=== PATIENT | female | born 1995 | race African-American/Black ===

== ENCOUNTER → 2018-09-12 | Outpatient (CLI) | payer OTHER ==
[~2018-09-12] MED LIST: AUGMENTIN 875 M1 TAB PO; BCP; BENTYL10 MG PO; CLARITIN10 MG PO; EES400 MG PO; FLONASE ALLERG9.9 ML NS; HYDROCODONE BIT1 T11 PO; MOTRIN100 MG/5 M PO; MOTRIN400 MG PO; NKHM; ZITHROMAX Z PA250 MG PO; ZOFRAN ODT4 MG SL
[2018-09-12 14:44] LABS: BASO % 0.2 % (0.0-1.0); EOS # 0.2 10*3/uL (0.0-0.4); HEMATOCRIT 42.2 % (37.0-47.0); HEMOGLOBIN 13.8 g/dl (12.0-16.0); LYMPH # 2.2 10*3/uL (1.3-4.4); LYMPH % 35.7 % (27.0-41.0); MEAN CELL VOLUME 89.4 fl (81.0-99.0); MEAN CORPUSCULAR HGB 29.2 pg (27.0-31.0); MEAN CORPUSCULAR HGB CONC 32.7 g/dl (33.0-37.0); MEAN PLATELET VOLUME 8.8 fl (9.6-12.3); MONO # 0.5 10*3/uL (0.1-1.0); MONO % 7.8 % (3.0-9.0); NEUT # 3.2 10*3/uL (2.3-7.9); NEUT % 53.1 % (47.0-73.0); PLATELET COUNT AUTOMATED 282 10*3/uL (130-400); RED BLOOD COUNT 4.72 10*6/uL (4.10-5.10); RED CELL DISTRI WIDTH 13.5 % (0-14.5)
[2018-09-12 15:01] LABS: BETA-HCG, QUANT < 1.0 mIU/mL (1-3); CHOLESTEROL 133 mg/dL (<200); GAMMA GLUTAMYL TRANSPEPTIDASE 20 U/L (5-55); HDL CHOLESTEROL 57 mg/dl (40-60); LDL CHOLESTEROL 62 mg/dL (9-159); TRIGLYCERIDES 69 mg/dl (<150); VLDL CHOLESTEROL 14 mg/dL (6-40)
== END | disposition home or self-care (01) ==
LOC: LAB 14:23
PROVIDERS: Physician Assistant Medical
DX: L60.0 Ingrowing nail (principal); Z79.899 Other long term (current) drug therapy

== ENCOUNTER → 2018-11-18 | Outpatient (CLI) | payer OTHER ==
[2018-11-18 10:43] LABS: BETA-HCG, QUANT < 1.0 mIU/mL (1-3); CHOLESTEROL 151 mg/dL (<200); GAMMA GLUTAMYL TRANSPEPTIDASE 24 U/L (5-55); HDL CHOLESTEROL 48 mg/dl (40-60); LDL CHOLESTEROL 79 mg/dL (9-159); TRIGLYCERIDES 121 mg/dl (<150); VLDL CHOLESTEROL 24 mg/dL (6-40)
== END | disposition home or self-care (01) ==
LOC: LAB 09:53
PROVIDERS: Physician Assistant Medical
DX: L60.0 Ingrowing nail (principal); Z79.899 Other long term (current) drug therapy

== ENCOUNTER → 2018-12-17 | Outpatient (CLI) | payer OTHER ==
[~2018-12-17] MED LIST changes: +Tobrex Ophth S2.5 ML OPH
== END | disposition home or self-care (01) ==
LOC: LAB 11:35
DX: L60.0 Ingrowing nail (principal); Z79.899 Other long term (current) drug therapy

== ENCOUNTER → 2019-01-20 | Outpatient (CLI) | payer OTHER | END | disposition home or self-care (01) | LOC: LAB 13:26 | DX: L60.0 Ingrowing nail (principal); Z79.899 Other long term (current) drug therapy ==

== ENCOUNTER → 2019-04-21 | Outpatient (CLI) | payer OTHER | END | disposition home or self-care (01) | LOC: LAB 17:03 | DX: L60.0 Ingrowing nail (principal); Z79.899 Other long term (current) drug therapy ==

== ENCOUNTER → 2019-07-27 | Outpatient (CLI) | payer OTHER | END | disposition home or self-care (01) | LOC: LAB 15:17 | DX: L02.413 Cutaneous abscess of right upper limb (principal) ==

== ENCOUNTER → 2019-09-07 | Outpatient (CLI) | payer OTHER ==
[2019-09-07 11:42] LABS: BASO % 0.3 % (0.0-1.0); EOS # 0.1 10*3/uL (0.0-0.4); HEMATOCRIT 45.1 % (37.0-47.0); HEMOGLOBIN 14.7 g/dl (12.0-16.0); LYMPH % 28.7 % (27.0-41.0); MEAN CELL VOLUME 88.6 fl (81.0-99.0); MEAN CORPUSCULAR HGB 28.9 pg (27.0-31.0); MEAN CORPUSCULAR HGB CONC 32.6 g/dl (33.0-37.0); MEAN PLATELET VOLUME 8.4 fl (9.6-12.3); MONO # 0.7 10*3/uL (0.1-1.0); NEUT # 4.2 10*3/uL (2.3-7.9); NEUT % 59.9 % (47.0-73.0); PLATELET COUNT AUTOMATED 314 10*3/uL (130-400); RED BLOOD COUNT 5.09 10*6/uL (4.10-5.10); RED CELL DISTRI WIDTH 12.9 % (0-14.5)
[2019-09-07 12:01] LABS: ALBUMIN 3.8 gm/dl (3.1-4.5); ALKALINE PHOSPHATASE 92 U/L (45-117); BUN 8 mg/dl (7-24); CHLORIDE 109 mmol/L (98-107); CREATININE 0.88 mg/dL (0.55-1.02); POTASSIUM 3.9 mmol/L (3.5-5.1); SGOT/AST 16 IU/L (3-35); SGPT/ALT 16 U/L (12-78); SODIUM 139 mmol/L (136-145); TOTAL PROTEIN 8.1 gm/dL (6.4-8.2)
== END | disposition home or self-care (01) ==
LOC: LAB 11:27
PROVIDERS: Pediatrics
DX: R05 Cough (principal); R06.02 Shortness of breath; R07.9 Chest pain, unspecified

== ENCOUNTER → 2019-11-02 | Outpatient (CLI) | payer BC | END | disposition home or self-care (01) | LOC: LAB 15:34 | DX: Z32.01 Encounter for pregnancy test, result positive (principal) ==

== ENCOUNTER 2019-12-06 18:39 | Emergency (ER) | payer BC ==
[~2019-12-06] VITALS: Ht 175.2 cm; Wt 76.2 kg
[2019-12-06 18:48] VITALS: BP 132/80
[2019-12-06 20:14] LABS: BASO % 0.3 % (0.0-1.0); EOS # 0.1 10*3/uL (0.0-0.4); EOS % 0.3 % (1.0-4.0); HEMATOCRIT 44.7 % (37.0-47.0); HEMOGLOBIN 15.1 g/dl (12.0-16.0); LYMPH # 3.2 10*3/uL (1.3-4.4); LYMPH % 21.8 % (27.0-41.0); MEAN CELL VOLUME 88.3 fl (81.0-99.0); MEAN CORPUSCULAR HGB 29.8 pg (27.0-31.0); MEAN CORPUSCULAR HGB CONC 33.8 g/dl (33.0-37.0); MEAN PLATELET VOLUME 8.8 fl (9.6-12.3); MONO # 1.1 10*3/uL (0.1-1.0); MONO % 7.4 % (3.0-9.0); NEUT # 10.2 10*3/uL (2.3-7.9); NEUT % 69.7 % (47.0-73.0); PLATELET COUNT AUTOMATED 374 10*3/uL (130-400); RED BLOOD COUNT 5.06 10*6/uL (4.10-5.10); RED CELL DISTRI WIDTH 13.2 % (0-14.5); WHITE BLOOD COUNT 14.7 10*3/uL (4.8-10.8)
[2019-12-06 20:24] LABS: ACT PARTIAL THROMBO TIME 27.8 SECONDS (20.0-32.1); INTERNATIONAL NORM RATIO 0.9 (2.0-3.5)
[2019-12-06 20:29] LABS: ALBUMIN 3.6 gm/dl (3.1-4.5); ALKALINE PHOSPHATASE 60 U/L (45-117); BUN 7 mg/dl (7-24); CHLORIDE 108 mmol/L (98-107); POTASSIUM 3.8 mmol/L (3.5-5.1); SGOT/AST 20 IU/L (3-35); SGPT/ALT 21 U/L (12-78); SODIUM 138 mmol/L (136-145); TOTAL PROTEIN 7.6 gm/dL (6.4-8.2)
[2019-12-06 20:31] LABS: BILIRUBIN NEGATIVE (NEGATIVE); BLOOD NEGATIVE (NEGATIVE); CLARITY SL CLOUDY (CLEAR); COLOR YELLOW (YELLOW); GLUCOSE NEGATIVE (NEGATIVE); KETONE 3+ (NEGATIVE); LEUKO ESTERASE NEGATIVE (NEGATIVE); NITRITE NEGATIVE (NEGATIVE); UROBILINOGEN 0.2 E.U./dl (0.2-1.0)
[2019-12-06 20:35] LABS: BACTERIA 2+; RBC 0-2 rbc/hpf (0-2)
[2019-12-06] MEDS ORDERED: DICLEGIS DR 101 EACH PO (23:22)
== END 2019-12-07 02:59 | disposition home or self-care (01) ==
LOC: ED 18:39
PROVIDERS: Nurse Practitioner Family
DX: O21.8 Other vomiting complicating pregnancy (principal); Z3A.08 8 weeks gestation of pregnancy; Z79.899 Other long term (current) drug therapy

== ENCOUNTER 2020-05-26 12:45 | Emergency (ER) | payer BC, OTHER ==
[~2020-05-26] VITALS: Ht 175.2 cm; Wt 99.3 kg
[~2020-05-26 12:45] MED LIST changes: +DICLEGIS DR 101 EACH PO
[2020-05-26 12:49] VITALS: BP 123/68
[2020-05-26] MEDS ORDERED: PRENATA CHEWAB1 EACH PO (13:11)
[2020-05-26 13:19] LABS: BASO # 0.1 10*3/uL (0.0-0.1); BASO % 0.4 % (0.0-1.0); EOS # 0.3 10*3/uL (0.0-0.4); EOS % 2.3 % (1.0-4.0); HEMATOCRIT 40.7 % (37.0-47.0); LYMPH # 2.1 10*3/uL (1.3-4.4); LYMPH % 17.3 % (27.0-41.0); MEAN CELL VOLUME 91.3 fl (81.0-99.0); MEAN CORPUSCULAR HGB 30.7 pg (27.0-31.0); MEAN CORPUSCULAR HGB CONC 33.7 g/dl (33.0-37.0); MEAN PLATELET VOLUME 9.1 fl (9.6-12.3); MONO % 8.7 % (3.0-9.0); NEUT # 8.2 10*3/uL (2.3-7.9); NEUT % 68.9 % (47.0-73.0); PLATELET COUNT AUTOMATED 246 10*3/uL (130-400); RED BLOOD COUNT 4.46 10*6/uL (4.10-5.10); RED CELL DISTRI WIDTH 12.9 % (0-14.5); WHITE BLOOD COUNT 11.9 10*3/uL (4.8-10.8)
[2020-05-26 13:33] LABS: BILIRUBIN NEGATIVE (NEGATIVE); BLOOD NEGATIVE (NEGATIVE); CLARITY CLOUDY (CLEAR); COLOR YELLOW (YELLOW); GLUCOSE NEGATIVE (NEGATIVE); KETONE NEGATIVE (NEGATIVE); LEUKO ESTERASE TRACE (NEGATIVE); NITRITE NEGATIVE (NEGATIVE); SPECIFIC GRAVITY 1.025 (1.005-1.030); UROBILINOGEN 0.2 E.U./dl (0.2-1.0)
[2020-05-26 13:39] LABS: ALBUMIN 2.6 gm/dl (3.1-4.5); ALKALINE PHOSPHATASE 119 U/L (45-117); BUN 4 mg/dl (7-24); CHLORIDE 107 mmol/L (98-107); CREATININE 0.66 mg/dL (0.55-1.02); POTASSIUM 3.7 mmol/L (3.5-5.1); SGOT/AST 18 IU/L (3-35); SGPT/ALT 18 U/L (12-78); SODIUM 136 mmol/L (136-145); TOTAL PROTEIN 6.3 gm/dL (6.4-8.2)
[2020-05-26 13:40] LABS: BACTERIA 4+; EPITHELIAL CELLS 31-40; MUCOUS 2+
== END 2020-05-26 16:09 | disposition home or self-care (01) ==
LOC: ED 12:45
PROVIDERS: Nurse Practitioner Family
DX: O26.893 Other specified pregnancy related conditions, third trimester (principal); R61 Generalized hyperhidrosis; R25.1 Tremor, unspecified; Z79.899 Other long term (current) drug therapy

== ENCOUNTER 2020-06-02 21:25 | Emergency (ER) | payer BC, OTHER ==
[~2020-06-02] VITALS: Ht 175.2 cm; Wt 97.5 kg
[~2020-06-02 21:25] MED LIST changes: +PRENATA CHEWAB1 EACH PO
[2020-06-02 21:34] VITALS: BP 118/74
== END 2020-06-02 23:37 | disposition home or self-care (01) ==
LOC: ED 21:25
DX: O26.891 Other specified pregnancy related conditions, first trimester (principal); R60.0 Localized edema; Z3A.08 8 weeks gestation of pregnancy; Z79.899 Other long term (current) drug therapy

== ENCOUNTER 2025-07-09 18:54 | Inpatient (IN) | payer OTHER ==
[~2025-07-09] VITALS: Ht 175.3 cm; Wt 90.5 kg
[2025-07-09 19:27] VITALS: BP 93/61
[2025-07-09] MEDS ORDERED: ACETAMINOPHEN 325 MG TAB PO ONE (19:50)
[2025-07-09] MEDS ORDERED: SODIUM CHLORIDE 0.9% 1,000 ML IV ONE (19:50)
[2025-07-09] MEDS ORDERED: Ondansetron Hydrochloride 4 MG/2 ML VIAL IV ONE (19:50)
[2025-07-09 20:33] LABS: MEAN CELL VOLUME 74.7 fl (81.0-99.0); MEAN CORPUSCULAR HGB 24.2 pg (27.0-31.0); MEAN PLATELET VOLUME 9.8 fl (9.6-12.3); NUCLEATED RED BLOOD CELL 0.0 % (0.0-0.0); NUCLEATED RED BLOOD CELL 0.0 10*3/uL (0.0-0.0); PLATELET COUNT AUTOMATED 211 10*3/uL (130-400); RED CELL DISTRI WIDTH 14.1 % (0-14.5)
[2025-07-09 20:34] LABS: MANUAL DIFF REFLEX YES
[2025-07-09 20:39] LABS: BILIRUBIN Negative (Negative); BLOOD Negative (Negative); CLARITY Clear (Clear); COLOR Orange (Yellow); KETONE 3+ (Negative); LEUKO ESTERASE Negative (Negative); NITRITE Negative (Negative); PH 5.5 (4.5-8.0); SPECIFIC GRAVITY 1.020 (1.001-1.030); UROBILINOGEN 1.0 E.U./dl (0.0-1.0)
[2025-07-09 20:46] LABS: EPITHELIAL CELLS 21-30; FINE GRANULAR CAST 0-2; MUCOUS 1+; RBC 0-2 rbc/hpf (0-2); WBC 0-2 wbc/hpf (0-5)
[2025-07-09 20:54] LABS: BUN 5 mg/dl (9-23)
[2025-07-09 20:59] LABS: BASOPHILS 1 % (0-1); PLATELET SUFFICIENCY NORMAL (NORMAL)
[2025-07-09] MEDS ORDERED: PROCHLORPERAZIN10 MG PO (21:30)
[2025-07-09] MEDS ORDERED: OLANZAPINE5 MG PO (21:30)
[2025-07-09 22:59] VITALS: BP 100/57
[2025-07-09 23:02] VITALS: BP 100/57
[2025-07-10 01:57] VITALS: BP 93/49
[2025-07-10] MEDS ORDERED: BISACODYL 10 MG SUPP R PRN (02:10)
[2025-07-10] MEDS ORDERED: BISACODYL 5 MG TAB PO PRN (02:10)
[2025-07-10] MEDS ORDERED: Acetaminophen/Hydrocodone 5 MG/325 MG TABLET PO PRN (02:10)
[2025-07-10] MEDS ORDERED: TEMAZEPAM 15 MG CAP PO PRN (02:10)
[2025-07-10] MEDS ORDERED: ACETAMINOPHEN 325 MG TAB PO PRN (02:10)
[2025-07-10] MEDS ORDERED: ACETAMINOPHEN 650 MG SUPP R PRN (02:10)
[2025-07-10] MEDS ORDERED: SODIUM CHLORIDE 0.9% 1,500 ML IV ONE (02:10)
[2025-07-10] MEDS ORDERED: Ondansetron Hydrochloride 4 MG/2 ML VIAL IV PRN (02:10)
[2025-07-10 03:20] VITALS: BP 100/67
[2025-07-10] MEDS ORDERED: POTASSIUM CHLORIDE 20 MEQ TAB PO ONE ×2 (04:25→08:00)
[2025-07-10 06:13] LABS: MEAN CELL VOLUME 76.3 fl (81.0-99.0); MEAN CORPUSCULAR HGB 24.4 pg (27.0-31.0); MEAN PLATELET VOLUME 10.0 fl (9.6-12.3); NUCLEATED RED BLOOD CELL 0.0 % (0.0-0.0); NUCLEATED RED BLOOD CELL 0.0 10*3/uL (0.0-0.0); PLATELET COUNT AUTOMATED 193 10*3/uL (130-400); RED CELL DISTRI WIDTH 14.2 % (0-14.5)
[2025-07-10 06:14] LABS: MANUAL DIFF REFLEX YES
[2025-07-10 06:20] LABS: BUN 6 mg/dl (9-23); FREE T4 1.16 ng/dl (0.89-1.76); LDL CHOLESTEROL 46 mg/dL (9-159); SGPT/ALT 16 U/L (5-49)
[2025-07-10 07:14] LABS: VITAMIN D, 25-HYDROXY 24.9 ng/mL (30-100)
[2025-07-10 07:18] LABS: DOHLE BODIES FEW; PLATELET SUFFICIENCY NORMAL (NORMAL)
[2025-07-10] MEDS ORDERED: SODIUM CHLORIDE 0.9% 1,000 ML IV ONE ×2 (07:45→15:45)
[2025-07-10 08:00] VITALS: BP 103/50
[2025-07-10] MEDS ORDERED: Lactobacillus Acidophilus/LA 1 TAB TAB PO SCH ×2 (10:00)
[2025-07-10] MEDS ORDERED: VANCOMYCIN HCL 125 MG CAPSULE PO SCH (10:00)
[2025-07-10 11:20] VITALS: BP 102/55
[2025-07-10] MEDS ORDERED: SODIUM CHLORIDE 0.9% 100 ML BAG IV ONE (13:15)
[2025-07-10] MEDS ORDERED: IOHEXOL 350 MG/ML 100 ML VIAL IV ONE (13:15)
[2025-07-10 13:55] VITALS: BP 103/60
[2025-07-10 16:37] VITALS: BP 100/58
[2025-07-11] VITALS: BP 97/48
[2025-07-11 06:10] LABS: MEAN CELL VOLUME 76.7 fl (81.0-99.0); MEAN CORPUSCULAR HGB 24.0 pg (27.0-31.0); MEAN PLATELET VOLUME 9.9 fl (9.6-12.3); NUCLEATED RED BLOOD CELL 0.0 10*3/uL (0.0-0.0); NUCLEATED RED BLOOD CELL 0.2 % (0.0-0.0); PLATELET COUNT AUTOMATED 197 10*3/uL (130-400); RED CELL DISTRI WIDTH 14.3 % (0-14.5)
[2025-07-11 06:13] LABS: MANUAL DIFF REFLEX YES
[2025-07-11 06:31] LABS: BUN 6 mg/dl (9-23); SGPT/ALT 12 U/L (5-49)
[2025-07-11 07:00] LABS: DOHLE BODIES FEW; PLATELET SUFFICIENCY NORMAL (NORMAL); VACUOLATION OF NEUTROPHILS SLIGHT
[2025-07-11 08:00] VITALS: BP 104/57
[2025-07-11] MEDS ORDERED: Cholecalciferol 2,000 UNIT TABLET (50 MCG) PO SCH (10:00)
[2025-07-11] MEDS ORDERED: ACETAMINOPHEN 500 MG TAB PO SCH ×2 (10:35→18:00)
[2025-07-11] MEDS ORDERED: SODIUM CHLORIDE 0.9% 1,000 ML IV ONE (10:50)
[2025-07-11] MEDS ORDERED: ACETAMINOPHEN 325 MG TAB PO ONE (10:55)
[2025-07-11 12:00] VITALS: BP 98/55
[2025-07-11 16:00] VITALS: BP 104/59
[2025-07-11 20:00] VITALS: BP 119/65
[2025-07-12] VITALS: BP 101/66
[2025-07-12 06:37] LABS: MEAN CELL VOLUME 75.5 fl (81.0-99.0); MEAN CORPUSCULAR HGB 24.2 pg (27.0-31.0); MEAN PLATELET VOLUME 9.7 fl (9.6-12.3); NUCLEATED RED BLOOD CELL 0.0 % (0.0-0.0); NUCLEATED RED BLOOD CELL 0.0 10*3/uL (0.0-0.0); PLATELET COUNT AUTOMATED 248 10*3/uL (130-400); RED CELL DISTRI WIDTH 14.7 % (0-14.5)
[2025-07-12 06:58] LABS: BUN 7 mg/dl (9-23)
[2025-07-12 07:41] LABS: MANUAL DIFF REFLEX YES
[2025-07-12 07:48] LABS: VACUOLATION OF NEUTROPHILS SLIGHT
[2025-07-12 07:50] LABS: PLATELET SUFFICIENCY NORMAL (NORMAL)
[2025-07-12 08:00] VITALS: BP 107/65
[2025-07-12] MEDS ORDERED: OXYCODONE HCL (IR) 5 MG TAB PO PRN (11:10)
[2025-07-12 12:00] VITALS: BP 110/65
[2025-07-12 16:00] VITALS: BP 109/67
[2025-07-12 20:00] VITALS: BP 114/68
[2025-07-13] VITALS: BP 107/59
[2025-07-13 08:00] VITALS: BP 115/75
[2025-07-13 12:00] VITALS: BP 105/63
[2025-07-13] MEDS ORDERED: POTASSIUM CHLORIDE 20 MEQ TAB PO ONE (15:05)
[2025-07-13 16:00] VITALS: BP 110/63
[2025-07-14] VITALS: BP 109/62
[2025-07-14 06:20] LABS: MEAN CELL VOLUME 74.6 fl (81.0-99.0); MEAN CORPUSCULAR HGB 24.1 pg (27.0-31.0); MEAN PLATELET VOLUME 9.2 fl (9.6-12.3); NUCLEATED RED BLOOD CELL 0.0 % (0.0-0.0); NUCLEATED RED BLOOD CELL 0.0 10*3/uL (0.0-0.0); RED CELL DISTRI WIDTH 15.4 % (0-14.5)
[2025-07-14 06:32] LABS: BUN < 5 mg/dl (9-23)
[2025-07-14 06:51] LABS: PLATELET COUNT AUTOMATED 403 10*3/uL (130-400)
[2025-07-14 06:52] LABS: MANUAL DIFF REFLEX YES
[2025-07-14 08:00] VITALS: BP 115/63
[2025-07-14 08:17] LABS: BASOPHILS 1 % (0-1)
[2025-07-14 08:18] LABS: PLATELET SUFFICIENCY HIGH (NORMAL)
[2025-07-14] MEDS ORDERED: SODIUM CHLORIDE 0.9% 1,000 ML IV ONE (09:20)
[2025-07-14 12:00] VITALS: BP 112/75
[2025-07-14] MEDS ORDERED: VANCOMYCIN HCL125 MG PO (14:00)
[2025-07-14] MEDS ORDERED: VITAMIN D350 MCG PO (14:00)
[2025-07-14] MEDS ORDERED: LACTINEX 0.2 MG1 TAB PO (14:00)
[2025-07-14 16:00] VITALS: BP 115/70
[2025-07-14 20:00] VITALS: BP 118/66
[2025-07-15] VITALS: BP 107/54
[2025-07-15 08:00] VITALS: BP 107/50
[2025-07-15] MEDS ORDERED: OXYCODONE HCL5 MG PO (09:04)
[2025-07-15 12:00] VITALS: BP 110/56
[2025-07-15 16:00] VITALS: BP 98/58
== END 2025-07-15 16:48 | disposition home or self-care (01) | DRG 871 ==
LOC: ED 18:54 → 5E 07-10 01:53 → EDHOLD 07-10 01:53 → 5E 07-10 02:47
PROVIDERS: Emergency Medicine; Internal Medicine; Registered Nurse; Student in an Organized Health Care Education/Training Program; ADMIT Internal Medicine; ATTEND Internal Medicine
DX: A41.89 Other specified sepsis (principal); E43 Unspecified severe protein-calorie malnutrition; A04.72 Enterocolitis due to Clostridium difficile, not specified as recurrent; E87.1 Hypo-osmolality and hyponatremia; E87.6 Hypokalemia; E86.0 Dehydration; D50.9 Iron deficiency anemia, unspecified; E55.9 Vitamin D deficiency, unspecified; R73.9 Hyperglycemia, unspecified; D69.1 Qualitative platelet defects; Z85.3 Personal history of malignant neoplasm of breast; Z88.8 Allergy status to other drugs, medicaments and biological substances; Z79.899 Other long term (current) drug therapy; Z79.01 Long term (current) use of anticoagulants; Z82.5 Family history of asthma and other chronic lower respiratory diseases; Z90.11 Acquired absence of right breast and nipple; Z68.24 Body mass index [BMI] 24.0-24.9, adult